=== PATIENT | male | born 1950 | race Caucasian/White ===

== ENCOUNTER 2021-04-26 17:35 | Emergency (ER) | payer MEDICARE, BC ==
[~2021-04-26] VITALS: Ht 182.9 cm; Wt 111.1 kg
[2021-04-26 19:05] VITALS: BP 125/71
--- NOTE | 2021-04-26 19:05 | NUR ---
Patient discharged to home in stable condition. Written and verbal after care instructions given. Patient verbalizes understanding of instructions. Stressed follow up or return to ER for worsening s/s.
== END 2021-04-26 19:00 | disposition home or self-care (01) ==
LOC: ER 17:39
DX: S63.274A Dislocation of unspecified interphalangeal joint of right ring finger, initial encounter (principal); W18.30XA Fall on same level, unspecified, initial encounter; Y92.89 Other specified places as the place of occurrence of the external cause
CPT/HCPCS: 73140; A4663